=== PATIENT | male | born 1930 | race Caucasian/White ===

== ENCOUNTER 2019-07-15 13:29 | Emergency (ER) | payer BC, OTHER ==
[~2019-07-15] VITALS: Ht 172.7 cm; Wt 77.1 kg
[2019-07-15 13:46] VITALS: BP 127/65
--- NOTE | 2019-07-15 13:47 | NUR ---
PT BIBA TO BED 02.
--- NOTE | 2019-07-15 13:55 | NUR ---
PT BIBA WITH C/O LACERATION TO L EYEBROW, 4TH AND 5TH DIGIT OF R HAND, AND 2ND DIGIT L HAND. PT STATES THAT HE LOST HIS FOOTING IN FRONT OF A PIZZA PLACE AT [place] ON HIS WAY BACK TO THE [facility]IOR HOME AND FELL. PT STATES THAT PAIN IS 3/10 AT THIS TIME AND DESCRIBES IT "TIGHT". PT PRESENTS WITH A CLEAR SPEECH AND IS AAOX4. NO CP OR SOB AT THIS TIME. PT POSITIONED FOR COMFORT. BED RAILS UP X 2 FOR PT SAFETY. ER MD TO SEE PT. PMH:PATRICIAIES RX:PATRICIAIES ULISES
--- NOTE | 2019-07-15 14:32 | NUR ---
PT WENT TO CT VIA [facility]
[2019-07-15 18:45] VITALS: BP 152/83
--- NOTE | 2019-07-15 18:45 | NUR ---
Patient discharged with v/s stable. Written and verbal after care instructions given and explained. Patient verbalized understanding. Ambulatory with steady gait. All questions addressed prior to discharge. Advised to follow up with PMD.
== END 2019-07-15 18:45 | disposition home or self-care (01) ==
LOC: MED 13:29
DX: S01.111A Laceration without foreign body of right eyelid and periocular area, initial encounter (principal); S61.211A Laceration without foreign body of left index finger without damage to nail, initial encounter; H11.31 Conjunctival hemorrhage, right eye; W01.0XXA Fall on same level from slipping, tripping and stumbling without subsequent striking against object, initial encounter; Y93.01 Activity, walking, marching and hiking; Y92.89 Other specified places as the place of occurrence of the external cause; Y99.8 Other external cause status
CPT/HCPCS: 12001; 70450; 70486; 72125; 99284